=== PATIENT | female | born 1970 | race Caucasian/White ===

== ENCOUNTER 2023-02-26 14:45 | Emergency (ER) | payer OTHER ==
[~2023-02-26] VITALS: Ht 165.1 cm; Wt 90.7 kg
[~2023-02-26 14:45] MED LIST: PEPCID20 MG PO
[2023-02-26 15:09] VITALS: BP 143/89
[2023-02-26] MEDS ORDERED: AMLODIPINE BESYL5 MG PO (15:10)
[2023-02-26] MEDS ORDERED: HYDR25T PO (15:10)
[2023-02-26] MEDS ORDERED: B12 ACTIVE1000 MCG PO (15:11)
[2023-02-26 15:48] LABS: BASO % 0.3 % (0.0-1.0); BILIRUBIN Negative (Negative); BLOOD 1+ (Negative); CLARITY Clear (Clear); COLOR Yellow (Yellow); EOS # 0.1 10*3/uL (0.0-0.4); EOS % 0.8 % (1.0-4.0); GLUCOSE Negative (Negative); KETONE Trace (Negative); LEUKO ESTERASE Trace (Negative); LYMPH # 2.5 10*3/uL (1.3-4.4); LYMPH % 18.1 % (27.0-41.0); MEAN CELL VOLUME 90.2 fl (81.0-99.0); MEAN CORPUSCULAR HGB 30.5 pg (27.0-31.0); MEAN CORPUSCULAR HGB CONC 33.8 g/dl (33.0-37.0); MEAN PLATELET VOLUME 8.8 fl (9.6-12.3); MONO # 0.7 10*3/uL (0.1-1.0); MONO % 4.9 % (3.0-9.0); NEUT # 10.3 10*3/uL (2.3-7.9); NEUT % 75.6 % (47.0-73.0); NITRITE Negative (Negative); PLATELET COUNT AUTOMATED 429 10*3/uL (130-400); RED BLOOD COUNT 4.99 10*6/uL (4.10-5.10); SPECIFIC GRAVITY 1.025 (1.001-1.030); WHITE BLOOD COUNT 13.6 10*3/uL (4.8-10.8)
[2023-02-26 15:56] LABS: BACTERIA 1+; MUCOUS 1+
[2023-02-26 16:09] LABS: ALKALINE PHOSPHATASE 135 U/L (46-116); BUN 10 mg/dl (9-23); CHLORIDE 108 mmol/L (98-107); LIPASE 34 U/L (12-53); POTASSIUM 3.7 mmol/L (3.4-5.1); SGPT/ALT 9 U/L (10-49); TOTAL PROTEIN 7.5 gm/dL (6.0-8.0)
[2023-02-26] MEDS ORDERED: HYDROCODONE-AC1 EAC1 PO (17:58)
[2023-02-26] MEDS ORDERED: CIPRO500 MG PO (17:58)
[2023-02-26] MEDS ORDERED: METRONIDAZOLE500 M1 PO (17:58)
[2023-02-26] MEDS ORDERED: Ondansetron4 MG PO (17:58)
== END 2023-02-26 17:54 | disposition home or self-care (01) ==
LOC: ED 14:45
PROVIDERS: Emergency Medicine
DX: K52.9 Noninfective gastroenteritis and colitis, unspecified (principal); R11.2 Nausea with vomiting, unspecified; Z88.8 Allergy status to other drugs, medicaments and biological substances; Z98.51 Tubal ligation status; Z98.890 Other specified postprocedural states

== ENCOUNTER → 2023-03-04 | Outpatient (CLI) | payer OTHER ==
[~2023-03-04] MED LIST changes: +AMLODIPINE BESYL5 MG PO; +B12 ACTIVE1000 MCG PO; +CIPRO500 MG PO; +HYDR25T PO; +HYDROCODONE-AC1 EAC1 PO; +METRONIDAZOLE500 M1 PO; +Ondansetron4 MG PO
== END | disposition home or self-care (01) ==
LOC: RAD 16:15
PROVIDERS: ATTEND Internal Medicine Nephrology
DX: M25.512 Pain in left shoulder (principal); M47.812 Spondylosis without myelopathy or radiculopathy, cervical region; M48.02 Spinal stenosis, cervical region

== ENCOUNTER → 2023-03-15 | Outpatient (CLI) | payer OTHER | END | disposition home or self-care (01) | LOC: MAMMO 14:37 | PROVIDERS: ATTEND Internal Medicine Nephrology | DX: Z12.31 Encounter for screening mammogram for malignant neoplasm of breast (principal) ==

== ENCOUNTER → 2023-09-27 | Outpatient (CLI) | payer OTHER ==
[2023-09-28 09:07] LABS: LYME INTERPRETATION Lyme Abs Unconfirmed (.)
== END | disposition home or self-care (01) ==
LOC: LAB 11:16
PROVIDERS: ATTEND Internal Medicine Nephrology
DX: S80.861A Insect bite (nonvenomous), right lower leg, initial encounter (principal); X58.XXXA Exposure to other specified factors, initial encounter; Y93.89 Activity, other specified; Y92.89 Other specified places as the place of occurrence of the external cause; Y99.8 Other external cause status

== ENCOUNTER 2024-11-12 18:46 | Emergency (ER) | payer OTHER ==
[~2024-11-12] VITALS: Ht 162.5 cm; Wt 89.4 kg
[2024-11-12 19:07] VITALS: BP 145/80
[2024-11-12] MEDS ORDERED: Ketorolac Tromethamine 60 MG/2 ML VIAL IM ONE (19:50)
[2024-11-12] MEDS ORDERED: METHOCARBAMOL 500 MG TAB PO ONE (19:50)
[2024-11-12] MEDS ORDERED: METHOCARBAMOL500 M1 PO (19:55)
[2024-11-12] MEDS ORDERED: NAPROXEN250 MG PO (19:55)
== END 2024-11-12 20:15 | disposition home or self-care (01) ==
LOC: ED 18:46
DX: S16.1XXA Strain of muscle, fascia and tendon at neck level, initial encounter (principal); S60.211A Contusion of right wrist, initial encounter; M25.511 Pain in right shoulder; Z88.8 Allergy status to other drugs, medicaments and biological substances; Z79.899 Other long term (current) drug therapy; W01.0XXA Fall on same level from slipping, tripping and stumbling without subsequent striking against object, initial encounter; Y93.89 Activity, other specified; Y92.89 Other specified places as the place of occurrence of the external cause; Y99.8 Other external cause status

== ENCOUNTER 2025-03-10 21:43 | Emergency (ER) | payer OTHER ==
[~2025-03-10] VITALS: Ht 167.6 cm; Wt 90.7 kg
[~2025-03-10 21:43] MED LIST changes: +METHOCARBAMOL500 M1 PO; +NAPROXEN250 MG PO
[2025-03-10 22:01] VITALS: BP 139/75
[2025-03-10] MEDS ORDERED: Ketorolac Tromethamine 60 MG/2 ML VIAL IM ONE (22:25)
[2025-03-10] MEDS ORDERED: NAPROSYN500 MG PO (23:13)
[2025-03-10] MEDS ORDERED: NAPROXEN 250 MG TAB PO ONE (23:20)
== END 2025-03-10 23:31 | disposition home or self-care (01) ==
LOC: ED 21:43
DX: M79.672 Pain in left foot (principal); M25.572 Pain in left ankle and joints of left foot; E78.00 Pure hypercholesterolemia, unspecified; Z88.8 Allergy status to other drugs, medicaments and biological substances; Z98.890 Other specified postprocedural states

== ENCOUNTER → 2025-04-18 | Outpatient (CLI) | payer OTHER ==
[~2025-04-18] MED LIST changes: +NAPROSYN500 MG PO
== END | disposition home or self-care (01) ==
LOC: RAD 12:21
PROVIDERS: ATTEND Internal Medicine Nephrology
DX: M25.511 Pain in right shoulder (principal); J84.89 Other specified interstitial pulmonary diseases

== ENCOUNTER 2025-06-25 11:50 | Emergency (ER) | payer OTHER ==
[~2025-06-25] VITALS: Ht 162.5 cm; Wt 89.8 kg
[2025-06-25 12:07] VITALS: BP 134/80
[2025-06-25] MEDS ORDERED: Lidocaine Hydrochloride 2% 10 ML AMP SC ONE (12:30)
[2025-06-25] MEDS ORDERED: SEPTDS PO (13:38)
[2025-06-25] MEDS ORDERED: Sulfamethoxazole/Trimethopri 1 TAB TAB PO ONE (13:40)
== END 2025-06-25 13:48 | disposition home or self-care (01) ==
LOC: ED 11:50
DX: L02.415 Cutaneous abscess of right lower limb (principal); L03.115 Cellulitis of right lower limb; E78.5 Hyperlipidemia, unspecified; F17.200 Nicotine dependence, unspecified, uncomplicated; Z88.8 Allergy status to other drugs, medicaments and biological substances; Z79.899 Other long term (current) drug therapy

== ENCOUNTER 2025-06-30 10:52 | Emergency (ER) | payer OTHER ==
[~2025-06-30] VITALS: Ht 167.6 cm; Wt 92.1 kg
[~2025-06-30 10:52] MED LIST changes: +SEPTDS PO
[2025-06-30 11:33] VITALS: BP 121/69
[2025-06-30] MEDS ORDERED: SODIUM CHLORIDE 0.9% 1,000 ML IV ONE ×2 (11:55→13:00)
[2025-06-30 12:01] LABS: BASO # 0.1 10*3/uL (0.0-0.1); BASO % 0.8 % (0.0-1.0); EOS # 0.2 10*3/uL (0.0-0.4); EOS % 2.9 % (1.0-4.0); MEAN CELL VOLUME 88.6 fl (81.0-99.0); MEAN CORPUSCULAR HGB 29.5 pg (27.0-31.0); MEAN PLATELET VOLUME 9.5 fl (9.6-12.3); MONO # 0.8 10*3/uL (0.1-1.0); MONO % 12.8 % (3.0-9.0); NEUT # 4.2 10*3/uL (2.3-7.9); NEUT % 66.9 % (47.0-73.0); NUCLEATED RED BLOOD CELL 0.0 % (0.0-0.0); NUCLEATED RED BLOOD CELL 0.0 10*3/uL (0.0-0.0); PLATELET COUNT AUTOMATED 328 10*3/uL (130-400); RED CELL DISTRI WIDTH 13.8 % (0-14.5)
[2025-06-30 12:23] LABS: BUN 12.0 mg/dl (9-23); SGPT/ALT 14.0 U/L (5-49)
[2025-06-30] MEDS ORDERED: CLEOCIN HCL300 MG PO (12:43)
[2025-06-30] MEDS ORDERED: POTASSIUM CHLORIDE 20 MEQ TAB PO ONE (12:50)
[2025-06-30] MEDS ORDERED: POTASSIUM CHLORIDE IN WATER 100 ML IV ONE (12:50)
[2025-06-30 13:07] LABS: BILIRUBIN Negative (Negative); BLOOD 1+ (Negative); CLARITY Clear (Clear); COLOR Yellow (Yellow); KETONE Negative (Negative); LEUKO ESTERASE Trace (Negative); NITRITE Negative (Negative); PH 6.0 (4.5-8.0); SPECIFIC GRAVITY 1.015 (1.001-1.030); UROBILINOGEN 0.2 E.U./dl (0.0-1.0)
[2025-06-30 13:18] LABS: BACTERIA 2+
[2025-06-30 13:19] LABS: YEAST TRACE
[2025-06-30 13:20] LABS: EPITHELIAL CELLS 16-20
[2025-06-30 16:26] LABS: BUN 10.0 mg/dl (9-23)
[2025-06-30] MEDS ORDERED: POTASSIUM CHLO10 ME5 PO (18:20)
[2025-06-30] MEDS ORDERED: POTASSIUM CHLORIDE 10 MEQ TAB PO ONE (18:25)
== END 2025-06-30 18:36 | disposition home or self-care (01) ==
LOC: ED 10:52
DX: E87.6 Hypokalemia (principal); E86.0 Dehydration; R53.1 Weakness; R51.9 Headache, unspecified; R19.7 Diarrhea, unspecified; Z88.8 Allergy status to other drugs, medicaments and biological substances; Z79.899 Other long term (current) drug therapy

== ENCOUNTER → 2025-07-02 | Outpatient (CLI) | payer OTHER ==
[~2025-07-02] MED LIST changes: +CLEOCIN HCL300 MG PO; +POTASSIUM CHLO10 ME5 PO
[2025-07-02 11:49] LABS: BUN 10.0 mg/dl (9-23); SGPT/ALT 15.0 U/L (5-49)
== END | disposition home or self-care (01) ==
LOC: LAB 10:35
PROVIDERS: ATTEND Internal Medicine Nephrology
DX: E87.6 Hypokalemia (principal); L02.415 Cutaneous abscess of right lower limb

== ENCOUNTER → 2025-08-21 | Outpatient (CLI) | payer OTHER ==
[2025-08-21 15:09] LABS: BUN 16.0 mg/dl (9-23)
== END | disposition home or self-care (01) ==
LOC: LAB 13:34
PROVIDERS: ATTEND Internal Medicine Nephrology
DX: E87.6 Hypokalemia (principal)

== ENCOUNTER → 2025-09-19 | Outpatient (CLI) | payer OTHER | END | disposition home or self-care (01) | LOC: CARD 11:47 | PROVIDERS: ATTEND Internal Medicine Nephrology | DX: R01.1 Cardiac murmur, unspecified (principal) ==